=== PATIENT | male | born 1985 | race Hispanic/Latino ===

== ENCOUNTER 2023-04-22 17:10 | Emergency (ER) | payer OTHER, SELFPAY ==
[2023-04-22] MEDS ORDERED: Morphine 4 MG/ML VIAL ONE ×2 (17:47→18:43)
[2023-04-22] MEDS ORDERED: Acetaminophen 325 MG TAB ONE ×2 (17:48→18:43)
[2023-04-22] MEDS ORDERED: Sodium Chloride 0.9% 0 ML ONE (17:48)
[2023-04-22] MEDS ORDERED: Orphenadrine Citrate 60 MG/2 ML VIAL ONE ×2 (17:48→18:43)
[2023-04-22] MEDS ORDERED: Boostrix 0.5 ML (Tdap) VIAL (>/=7 yrs of age) ONE (17:48)
[2023-04-22 18:29] LABS: #Basophils 0.1 thou/uL (0.0-0.2); #Eosinphils 1.7 thou/uL (0.0-0.7); #Lymphocytes 1.7 thou/uL (1.20-3.40); #Monocytes 0.6 thou/uL (0.11-0.59); %Eosinophils 16.9 % (0.0-10.0); %Lymphocytes 16.8 % (21.0-51.0); %Monocytes 5.5 % (0.0-10.0); %Neutrophils 59.9 % (42.0-75.0); Hematocrit 43.5 % (42.0-52.0); Mean Corpuscular HGB CONC 34.4 g/dL (32.0-36.0); Mean Corpuscular Hemoglobin 27.8 pg (27.0-31.0); Mean Corpuscular Volume 80.9 fl (78.0-98.0); Mean Platelet Volume 8.7 fL (7.4-10.4); Platelet Count 210 10x3/uL (130-400); RBC Distribution Width 11.9 % (11.5-14.5); Red Blood Cell (RBC) Count 5.39 mill/uL (4.70-6.10)
[2023-04-22] MEDS ORDERED: Sodium Chloride 0.9% 1,000 ML ONE (18:43)
[2023-04-22 18:45] LABS: ALT (SGPT) 21 U/L (8-55); AST (SGOT) 28 U/L (5-34); Albumin 3.3 g/dL (3.5-5.0); Alkaline Phosphatase 89 U/L (40-110); Anion Gap 15 mmol/L (10-20); BUN (Urea Nitrogen) 20 mg/dL (8.9-20.6); Bilirubin, Total 0.3 mg/dL (0.2-1.2); Calc. Creatinine Clearance 0 mL/min (70-130); Calcium 8.1 mg/dL (7.8-10.44); Carbon Dioxide 21 mmol/L (22-29); Chloride 104 mmol/L (98-107); Estimated GFR 63; Globulin 2.8 g/dL (2.4-3.5); Glucose 112 mg/dL (70-105); Lipase 23 U/L (8-78); Potassium 3.2 mmol/L (3.5-5.1); Protein, Total 6.1 g/dL (6.0-8.3); Sodium 137 mmol/L (136-145)
[2023-04-22] MEDS ORDERED: Potassium Chloride 20 MEQ TAB ONE (18:52)
[2023-04-22 19:10] LABS: Bilirubin Negative (Negative); Blood, Urine Trace (Negative); Glucose, Urine (Dipstick) Negative (Negative); Ketone, Urine Negative (Negative); Leukocyte Negative (Negative); Nitrite Negative (Negative); Protein, Urine (Dipstick) > or equal to 300 mg/dL (Neg-Trace); Specific Gravity, Urine 1.025 (1.005-1.030); Urobilinogen 0.2 mg/dL (Less than 2)
[2023-04-22 19:11] LABS: Clarity Hazy (Clear)
[2023-04-22 19:12] LABS: CAUTI Indications for Culture Dysuria,urgency,freq
[2023-04-22 19:14] LABS: Bacteria/HPF Rare-Few HPF (None Seen); RBC/HPF 0-3 HPF (0-3); Squamous Epithelial 0-3 HPF (0-3); WBC/HPF 0-3 HPF (0-3)
[2023-04-22 19:15] LABS: Urine Culture Reflex No No
[2023-04-22 20:15] LABS: Troponin I Less than 0.010 ng/mL (< 0.028)
== END 2023-04-22 21:20 | disposition home or self-care (01) ==
LOC: MADERS 17:10
DX: S20.20XA Contusion of thorax, unspecified, initial encounter (principal); S00.01XA Abrasion of scalp, initial encounter; R31.29 Other microscopic hematuria; E87.6 Hypokalemia; N18.9 Chronic kidney disease, unspecified; V49.9XXA Car occupant (driver) (passenger) injured in unspecified traffic accident, initial encounter
CPT/HCPCS: 36415; 70450; 71260; 72125; 74177; 80053; 81001; 83690; 84484; 85025; 90471; 90715; 93005; 94760; 96361; 96372; 96374; J2270; J2360; J7050